=== PATIENT | female | born 1950 | race Caucasian/White ===

== ENCOUNTER 2020-12-07 20:19 | Emergency (ER) | payer MEDICARE, OTHER ==
--- NOTE | 2020-12-07 21:25 | EDM.PDOC ---
ED HPI GENERAL MEDICAL PROBLEM - General Chief Complaint: Lower Extremity Injury/Pain Stated Complaint: Twisted Ankle Time Seen by Provider: 12/07/20 20:32 Left Ankle Pain Score (Numeric/FACES): 2 - Related Data Allergies Allergy/AdvReac Type Severity Reaction Status Date / Time No Known Allergies Allergy Verified 12/07/20 20:48 Home Meds: Home Meds Fluticasone/Salmeterol [Advair 250-50] 1 puff INH DAILY 12/07/20 [History] Past Medical History Respiratory History: Reports: Asthma - Past Surgical History Musculoskeletal Surgical History: Reports: Hip Replacement Social & Family History - Family History Family Medical History: No Pertinent Family History - Tobacco Use Tobacco Use Status *Q: Former Tobacco User Used Tobacco, but Quit: Yes Month/Year Tobacco Last Used: 1979 - Caffeine Use Caffeine Use: Reports: None - Alcohol Use Days Per Week of Alcohol Use: 3 Number of Drinks Per Day: 2 Total Drinks Per Week: 6 - Recreational Drug Use Recreational Drug Use: No Review of Systems - Review of Systems Review Of Systems: Comprehensive ROS is negative, except as noted in HPI. ED EXAM, GENERAL - Physical Exam Exam: See Below Exam Limited By: No Limitations General Appearance: Alert, WD/WN, No Apparent Distress Ears: Normal External Exam Nose: Normal Inspection Head: Atraumatic, Normocephalic Neck: Normal Inspection Respiratory/Chest: No Respiratory Distress, No Accessory Muscle Use Back Exam: Paraspinal Tenderness (Left lumbar region) Extremities: Normal Inspection, Other (Mild swelling over left lateral malleolus, no discoloration or deformity noted. Distal CMS intact) Neurological: Alert, Oriented Skin Exam: Warm, Intact ED TRAUMA EXTREMITY PROCEDURES - Splinting Left Lower Extremity Splint Site: ankle Pre-Procedure NV Status: Normal Post-Procedure NV Status: Normal Splint Material: Boot Orthotic Applied & Form Fitted By: Nurse Provider Post-Splint Application NV Check: NV Status Normal, Good Position Complications: No Course - Vital Signs Last Recorded V/S: Last Vital Signs Temp 36.8 C 12/07/20 20:25 Pulse 73 12/07/20 20:25 Resp 16 12/07/20 20:25 BP 134/68 12/07/20 20:25 Pulse Ox 98 12/07/20 20:25 - Orders/Labs/Meds Orders: Active Orders 24 hr Category Date Time Status Ankle Min 3V Lt [CR] Stat Exams 12/07/20 20:35 Taken - Re-Assessments/Exams Free Text/Narrative Re-Assessment/Exam: 12/07/20 21:20 This patient presents for evaluation of left ankle pain after a fall. CMS is intact distally in the extremity. X-ray reveals a distal fibula fracture that does not need reduction at this time. Patient understands that this need for reduction or surgery may change with time and orthopedic consultation. She was encouraged to contact her primary care provider upon arrival at home early next week and discuss follow-up. She was placed in a cam walker with fracture precautions for home. Her head to toe trauma examination is otherwise normal at this time and no further trauma work-up is needed. There is no sign of serious head, neck, chest, spinal, extremity, or abdominal injuries. This does appear to be a nonoperative injury and unless further angulation with time or unrelenting pain, definitive fracture care is provided. The patient was education on natural course of the fracture, offered pain medication and decided to use nonsteroidal anti-inflammatory care at home. She is encouraged to weight-bear as tolerated or use crutches as needed. She should follow-up with her primary care provider next week to develop a definitive aftercare plan. Departure - Departure Time of Disposition: 21:20 Disposition: Home, Self-Care 01 Condition: Good Clinical Impression: Fracture of fibula with tibia, left, closed, Fracture of fibula - Discharge Information *PRESCRIPTION DRUG MONITORING PROGRAM REVIEWED*: No *COPY OF PRESCRIPTION DRUG MONITORING REPORT IN PATIENT BLAN[place]: No Instructions: Ankle Fracture, [id number], Cast or Splint Care, Adult, [id number], Fibular Fracture With Rehab-SportsMed Forms: ED Department Discharge Additional Instructions: Discharge home. Fibula fracture, wear walking boot. X-ray CD sent with patient. Follow up with your primary care provider this week. Get lots of rest. Naprosyn 500mg 1 tablet by mouth for pain. Sepsis Event Note (ED) - Evaluation Sepsis Screening Result: No Definite Risk - Focused Exam Vital Signs: Vital Signs Temp Pulse Resp BP Pulse Ox 12/07/20 20:25 36.8 C 73 16 134/68 98 - My Orders Last 24 Hours: My Active Orders 12/07/20 20:35 Ankle Min 3V Lt [CR] Stat - Assessment/Plan Last 24 Hours: My Active Orders 12/07/20 20:35 Ankle Min 3V Lt [CR] Stat
--- NOTE | 2020-12-09 09:30 | CR ---
Date of Service: 12/07/20 Clinical Data: trauma LEFT ANKLE: No priors. There is moderate soft tissue swelling over the lateral malleolus. There is a nondisplaced transverse fracture through the distal fibula. No other acute abnormalities. IMPRESSION: Distal fibular fracture. [id number] [facility]
== END 2020-12-07 21:15 | disposition home or self-care (01) ==
LOC: LB.ED 20:19
DX: S82.832A Other fracture of upper and lower end of left fibula, initial encounter for closed fracture (principal); Z87.891 Personal history of nicotine dependence; W18.39XA Other fall on same level, initial encounter
CPT/HCPCS: 73610-LT; 99283-25